=== PATIENT | male | born 2000 | race Hispanic/Latino ===

== ENCOUNTER 2022-06-10 10:05 | Emergency (ER) | payer OTHER ==
[~2022-06-10] VITALS: Ht 162.6 cm; Wt 48.1 kg
[2022-06-10 10:09] VITALS: BP 129/63
[2022-06-10] MEDS ORDERED: ACETAMINOPHEN 500 MG TABLET PO ONE (10:30)
[2022-06-10] MEDS ORDERED: OSEL75 PO (10:54)
[2022-06-10] MEDS ORDERED: IBUP-1493 PO (10:54)
== END 2022-06-10 11:13 | disposition home or self-care (01) ==
LOC: EDH 10:05
DX: J10.1 Influenza due to other identified influenza virus with other respiratory manifestations (principal); Z20.822 Contact with and (suspected) exposure to COVID-19; Z79.1 Long term (current) use of non-steroidal anti-inflammatories (NSAID)
CPT/HCPCS: 99283; 87635; 87804 ×2; C9803